=== PATIENT | female | born 1990 | race Two or more races ===

== ENCOUNTER 2018-01-04 14:57 | Outpatient (CLI) | payer BC ==
[~2018-01-04 14:57] MED LIST: FERRIC CARBOXYMALTOSE 750 MG in NORMAL SALINE 250 ML IV PRN; NORMAL SALINE 250 ML IV PRN
[2018-01-04 15:44] VITALS: BP 116/70
== END 2018-01-04 16:04 | disposition home or self-care (01) ==
LOC: II 14:57 → 5TH 15:28 → II 16:04
PROVIDERS: ATTEND Internal Medicine Hematology & Oncology
PROC: 3E033GC Introduction of Other Therapeutic Substance into Peripheral Vein, Percutaneous Approach (ICD-10-PCS; principal; 2018-01-04)
DX: D50.9 Iron deficiency anemia, unspecified (principal); K90.9 Intestinal malabsorption, unspecified
CPT/HCPCS: 96367; J7050; J1439; 96374

== ENCOUNTER 2018-01-11 14:55 | Outpatient (CLI) | payer BC ==
[2018-01-11 15:25] VITALS: BP 111/63
== END 2018-01-11 16:04 | disposition home or self-care (01) ==
LOC: II 14:55 → 5TH 15:14 → II 16:04
PROVIDERS: ATTEND Internal Medicine Hematology & Oncology
PROC: 3E033GC Introduction of Other Therapeutic Substance into Peripheral Vein, Percutaneous Approach (ICD-10-PCS; principal; 2018-01-11)
DX: D50.9 Iron deficiency anemia, unspecified (principal); K90.9 Intestinal malabsorption, unspecified
CPT/HCPCS: 96374; J7050; J1439; 96367

== ENCOUNTER 2018-03-17 15:45 | Outpatient (CLI) | payer BC ==
[2018-03-17 16:18] LABS: APPEARANCE,URINE SLIGHTLY-CLOUDY; BILIRUBIN,URINE NEGATIVE (NEGATIVE); COLOR,URINE STRAW; GLUCOSE, URINE NEGATIVE (NEGATIVE); KETONES,URINE NEGATIVE (NEGATIVE); LEUKOCYTE ESTERASE,URINE NEGATIVE (NEGATIVE); NITRITE,URINE NEGATIVE (NEGATIVE); PROTEIN,URINE NEGATIVE (NEGATIVE); URINE SPECIFIC GRAVITY 1.005; UROBILINOGEN,URINE NEGATIVE mg/dL (<2.0)
[2018-03-17 16:33] LABS: URINE AMPHETAMINES SCREEN NEGATIVE; URINE BARBITURATES SCREEN NEGATIVE; URINE BENZODIAZEPINES SCREEN NEGATIVE; URINE COCAINE SCREEN NEGATIVE; URINE MARIJUANA (THC) SCREEN NEGATIVE; URINE METHADONE SCREEN NEGATIVE; URINE PHENCYCLIDINE SCREEN NEGATIVE
== END 2018-03-17 17:42 | disposition home or self-care (01) ==
LOC: LC 15:45
PROVIDERS: ATTEND Student in an Organized Health Care Education/Training Program
PROC: 4A1HXCZ Monitoring of Products of Conception, Cardiac Rate, External Approach (ICD-10-PCS; principal; 2018-03-17)
DX: O47.1 False labor at or after 37 completed weeks of gestation (principal); Z3A.40 40 weeks gestation of pregnancy
CPT/HCPCS: 59025; 80307; 81005; 82962

== ENCOUNTER 2018-03-20 06:48 | Outpatient (CLI) | payer BC ==
--- NOTE | 2018-03-20 06:53 | Non Stress Test Report ---
I WAS NOT CONSULTED ON THIS PATIENT. DR WASSERMAN WAS NOTIFIED OF THIS PATIENT ====== Non Stress Test Datetime Report Generated by CPN: 03/20/2018 06:53 DEMOGRAPHIC EGA NST: 40.1 INDICATION Indication for Study: Diabetes Mellitus; Other Indication for Study (NST) Other: LABOR CHECK MONITORING Monitor Explained: Monitor Explained; Test Explained; Patient Verbalized Understanding Time on Monitor: 03/17/2018 16:06 Time off Monitor: 03/17/2018 17:26 NST Duration: 80 NST INTERVENTIONS NST Interventions: PO Hydration; Reposition Patient Physician Notified NST: DRAleyda ALYSE BABY A: [id number] BABY A Movement : Present Contraction Frequency : IRREG FHR Baseline : 140 Accelerations : 15X15 Decelerations : None Variability : Moderate 6-25bpm NST Review: Meets Criteria for Reactive NST NST Review and Verified By : EMERSON MCCORMICK Results: Reactive NST REPORT Report Trigger: Send Report MTDD
[2018-03-20 07:45] LABS: APPEARANCE,URINE SLIGHTLY-CLOUDY; BILIRUBIN,URINE NEGATIVE (NEGATIVE); COLOR,URINE STRAW; GLUCOSE, URINE NEGATIVE (NEGATIVE); KETONES,URINE NEGATIVE (NEGATIVE); LEUKOCYTE ESTERASE,URINE NEGATIVE (NEGATIVE); NITRITE,URINE NEGATIVE (NEGATIVE); PROTEIN,URINE NEGATIVE (NEGATIVE); URINE SPECIFIC GRAVITY 1.009; UROBILINOGEN,URINE NEGATIVE mg/dL (<2.0)
[2018-03-20 08:11] LABS: URINE AMPHETAMINES SCREEN NEGATIVE; URINE BARBITURATES SCREEN NEGATIVE; URINE BENZODIAZEPINES SCREEN NEGATIVE; URINE COCAINE SCREEN NEGATIVE; URINE MARIJUANA (THC) SCREEN NEGATIVE; URINE METHADONE SCREEN NEGATIVE; URINE PHENCYCLIDINE SCREEN NEGATIVE
[2018-03-20] MEDS ORDERED: PROMETHAZINE HCL INJ 25 MG/1 ML VIAL IM ONE (09:28)
[2018-03-20] MEDS ORDERED: MORPHINE SULFATE 10 MG/ML INJ IM ONE (09:28)
[2018-03-20] MEDS ORDERED: MORPHINE SULFATE 10 MG/ML INJ ONE (09:34)
[2018-03-20] MEDS ORDERED: PROMETHAZINE HCL INJ 25 MG/1 ML VIAL ONE (09:34)
--- NOTE | 2018-03-20 10:23 | Non Stress Test Report ---
I WAS NOT CONSULTED ON THIS PATIENT. DR CHILDRESS WAS NOTIFIED OF THIS PATIENT======= Non Stress Test Datetime Report Generated by CPN: 03/20/2018 10:23 DEMOGRAPHIC EGA NST: 40.4 INDICATION Indication for Study: Other Indication for Study (NST) Other: lc MONITORING Monitor Explained: Monitor Explained; Test Explained; Patient Verbalized Understanding Time on Monitor: 03/20/2018 08:50 Time off Monitor: 03/20/2018 09:13 NST Duration: 23 NST INTERVENTIONS NST Interventions: PO Hydration; Reposition Patient Physician Notified NST: Dr Childress BABY A Movement : Present Contraction Frequency : irreg FHR Baseline : 125 Accelerations : 15X15 Decelerations : None Variability : Moderate 6-25bpm NST Review: Meets Criteria for Reactive NST NST Review and Verified By : Juan Jose RN NST Results: Reactive NST REPORT Report Trigger: Send Report MTDD
== END 2018-03-20 09:50 | disposition home or self-care (01) ==
LOC: LC 06:48
PROVIDERS: ATTEND Obstetrics & Gynecology
PROC: 4A1HXCZ Monitoring of Products of Conception, Cardiac Rate, External Approach (ICD-10-PCS; principal; 2018-03-20)
DX: O24.419 Gestational diabetes mellitus in pregnancy, unspecified control (principal); Z3A.40 40 weeks gestation of pregnancy
CPT/HCPCS: 59025; 82962; 81005; 80307; J2270; J2550

== ENCOUNTER 2018-03-21 03:05 | Inpatient (IN) | payer BC ==
[2018-03-21 04:22] LABS: APPEARANCE,URINE TURBID; BILIRUBIN,URINE NEGATIVE (NEGATIVE); COLOR,URINE YELLOW; GLUCOSE, URINE NEGATIVE (NEGATIVE); KETONES,URINE NEGATIVE (NEGATIVE); LEUKOCYTE ESTERASE,URINE MODERATE (NEGATIVE); NITRITE,URINE NEGATIVE (NEGATIVE); PROTEIN,URINE 30 mg/dL (NEGATIVE); URINE SPECIFIC GRAVITY 1.012; UROBILINOGEN,URINE NEGATIVE mg/dL (<2.0)
[2018-03-21 04:37] LABS: URINE AMPHETAMINES SCREEN NEGATIVE; URINE BARBITURATES SCREEN NEGATIVE; URINE BENZODIAZEPINES SCREEN NEGATIVE; URINE COCAINE SCREEN NEGATIVE; URINE MARIJUANA (THC) SCREEN NEGATIVE; URINE METHADONE SCREEN NEGATIVE; URINE PHENCYCLIDINE SCREEN NEGATIVE
[2018-03-21] MEDS ORDERED: RINGERS SOLUTION,LACTATED 1,000 ML IV PRN (06:25)
[2018-03-21 07:17] LABS: HEMATOCRIT 43.8 % (36.0-47.0); HEMOGLOBIN 15.2 g/dL (12.0-15.5); MEAN CORPUSCULAR HEMOGLOBIN 29.1 pg (27.0-33.4); MEAN CORPUSCULAR HGB CONC 34.6 g/dL (32.0-36.0); MEAN CORPUSCULAR VOLUME 84 fl (80-97); PLATELET COUNT 242 10^3/uL (150-450); RED CELL DISTRIBUTION WIDTH 18.3 % (11.5-14.0); WHITE BLOOD COUNT 8.3 10^3/uL (4.0-10.5)
[2018-03-21 07:42] LABS: ABSOLUTE LYMPHOCYTES# (MANUAL) 1.8 10^3/uL (0.5-4.7); ABSOLUTE MONOCYTES # (MANUAL) 0.3 10^3/uL (0.1-1.4); ABSOLUTE NEUTROPHILS# (MANUAL) 6.1 10^3/uL (1.7-8.2); ANISOCYTOSIS 2+; BAND NEUTROPHILS % (MANUAL) 3 % (3-5); BASOPHILS % (MANUAL) 1 % (0-2); EOSINOPHILS % (MANUAL) 0 % (0-6); LYMPHOCYTES % (MANUAL) 21 % (13-45); MONOCYTES % (MANUAL) 4 % (3-13); PLATELET CLUMPS PRESENT; POLYCHROMASIA SLIGHT; SEGMENTED NEUTROPHILS % (MAN) 70 % (42-78); TOTAL CELLS COUNTED 100; TOXIC GRANULATION 2+; TOXIC VACUOLATION PRESENT
[2018-03-21] MEDS ORDERED: LIDOCAINE 1% INJ-PF (10 MG/ML) 30 ML SDV ONE (07:57)
[2018-03-21] MEDS ORDERED: OXYTOCIN/NORMAL SALINE 20 UNIT/1,000 ML RTUINJ ONE (07:57)
[2018-03-21] MEDS ORDERED: MISOPROSTOL 0.2 MG TABLET ONE ×2 (07:57→15:02)
[2018-03-21] MEDS ORDERED: MAGNESIUM HYDROXIDE SUSP 30 ML UDCUP PO PRN (09:25)
[2018-03-21] MEDS ORDERED: PROMETHAZINE HCL 25 MG SUPP.RECT PR PRN (09:25)
[2018-03-21] MEDS ORDERED: DIBUCAINE 1% OINTMENT 28 GM TP PRN (09:25)
[2018-03-21] MEDS ORDERED: ZOLPIDEM TARTRATE 5 MG TABLET PO PRN (09:25)
[2018-03-21] MEDS ORDERED: PROMETHAZINE HCL 25 MG TABLET PO PRN (09:25)
[2018-03-21] MEDS ORDERED: MEASLES,MUMPS&RUBELLA VACC/PF 0.5 ML VIAL SUBCUT PRN ×2 (09:25→14:00)
[2018-03-21] MEDS ORDERED: OXYTOCIN/NORMAL SALINE 20 UNIT/1,000 ML RTUINJ IV PRN (09:25)
[2018-03-21] MEDS ORDERED: DIPHENHYDRAMINE HCL 25 MG CAPSULE PO PRN (09:25)
[2018-03-21] MEDS ORDERED: BENZOCAINE/MENTHOL AEROSOL SPRAY 56 ML TOP PRN (09:25)
[2018-03-21] MEDS ORDERED: NA PHOS,M-B/NA PHOS,DI-BA (ADULT) 133 ML ENEMA PR PRN (09:25)
[2018-03-21] MEDS ORDERED: PSEUDOEPHEDRINE HCL 30 MG TABLET PO PRN (09:25)
[2018-03-21] MEDS ORDERED: DIPH/PERTUSS(ACELL)/TETANUS VAC/PF 0.5 ML SYR (>=10YO) IM PRN ×2 (09:25→14:00)
[2018-03-21] MEDS ORDERED: ACETAMINOPHEN WITH CODEINE #3 TABLET PO PRN ×2 (09:25)
[2018-03-21] MEDS ORDERED: ACETAMINOPHEN 650 MG SUPP.RECT PR PRN (09:25)
[2018-03-21] MEDS ORDERED: PROMETHAZINE HCL INJ 25 MG/1 ML VIAL IV PRN ×2 (09:25→14:00)
[2018-03-21] MEDS ORDERED: GLYCERIN/WITCH HAZEL LEAF 1 EACH MED..PAD TP PRN (09:25)
[2018-03-21] MEDS ORDERED: IBUPROFEN 800 MG TABLET ONE (09:45)
[2018-03-21] MEDS: PRENATAL VITAMIN W DHA CAPSULE PO SCH (11:16)
[2018-03-21] MEDS: SENNOSIDES/DOCUSATE 8.6-50 MG 1 EACH TABLET PO SCH (11:16)
[2018-03-21] MEDS: FAMOTIDINE 20 MG TABLET PO SCH ×2 (11:17→21:45)
[2018-03-21] MEDS: DOCUSATE SODIUM 100 MG CAPSULE PO SCH ×2 (11:17→18:15)
[2018-03-21] MEDS: FERROUS SULFATE 325 MG TABLET PO SCH ×2 (11:20→18:15)
[2018-03-21] MEDS: IBUPROFEN 800 MG TABLET PO SCH ×2 (13:48→21:46)
[2018-03-21] MEDS ORDERED: IBUPROFEN 800 MG TABLET PO SCH (14:00)
--- NOTE | 2018-03-21 14:26 | PDOC PROGRESS REPORT ---
Subjective-OB Progress Note for:: 03/21/18 Subjective: denies pain. CNM called by RN for several large clots Physical Exam (OB) Vital Signs: Temp Pulse Resp BP Pulse Ox 98.4 F 81 16 105/64 100 03/21/18 10:59 03/21/18 10:59 03/21/18 10:59 03/21/18 10:59 03/21/18 10:59 Intake & Output 03/20/18 03/21/18 03/22/18 06:59 06:59 06:59 Weight 66 kg - Lochia Lochia Amount: Moderate 25-50 ml - CNM removed scant clots from lower uterine segment - Abdomen Description: Soft Fundal Description: Firm Fundal Height: u/u - u/2 - Genitourinary Female External exam: Normal Speculum exam: Cervix open - other clots felt, unable to reach to remove, cytotec 1000mg MD placed Objective-Diagnostic Laboratory: 03/21/18 06:41 03/21/18 03/21/18 03/21/18 03:20 06:41 06:41 WBC 8.3 RBC 5.20 Hgb 15.2 Hct 43.8 MCV 84 MCH 29.1 MCHC 34.6 RDW 18.3 H Plt Count 242 Seg Neutrophils % Not Reportable Lymphocytes % Not Reportable Monocytes % Not Reportable Eosinophils % Not Reportable Basophils % Not Reportable Absolute Neutrophils Not Reportable Absolute Lymphocytes Not Reportable Absolute Monocytes Not Reportable Absolute Eosinophils Not Reportable Absolute Basophils Not Reportable Urine Color YELLOW Urine Appearance TURBID Urine pH 6.0 Ur Specific [place] 1.012 Urine Protein 30 H Urine Glucose (UA) NEGATIVE Urine Ketones NEGATIVE Urine Blood LARGE H Urine Nitrite NEGATIVE Ur Leukocyte Esterase MODERATE H Blood Type O POSITIVE Antibody Screen NEGATIVE Assessment and Plan(PN) - Assessment and Plan (1) Vaginal delivery following previous section, delivered Is this a current diagnosis for this admission?: Yes - Time Spent with Patient Time with patient: Less than 15 minutes - Disposition Anticipated Discharge: Home Within: within 48 hours
[2018-03-21] MEDS ORDERED: MISOPROSTOL 0.2 MG TABLET PR ONE (14:27)
--- NOTE | 2018-03-21 15:00 | Admission Physical ---
Datetime Report Generated by CPN: 03/21/2018 15:00 CURRENT ADMISSION Chief Complaint: Uterine Contractions Indication for Induction: Not Applicable Admit Impression : Term, Intrauterine ; Active Labor Admit Plan: Admit to Unit ALLERGIES Medication Allergies: No Medication Allergies: No Known Allergies (03/21/2018) Latex: No Latex Allergies Food Allergies: NONE Environmental Allergies: NONE OBSTETRICAL HISTORY EDC: 03/16/2018 00:00 : 7 Para: 3 Term: 3 : 0 Ectopic: 0 Livin Cesareans: 1 VBACs: 0 Multiple Births: 0 Gestational Diabetes: Yes Rh Sensitization: No Incompetent Cervix: No SHIELA: No Infertility: No ART Treatment: No Uterine Anomaly: No IUGR: No Hx Previous C/S: Yes Macrosomia: No Hx Loss/Stillborn: No PIH: No Hx : No Placenta Previa/Abruption: No Depression/PP Depression: No PTL/PROM: No Post Hemorrhage: No Current Procedures: Ultrasound Obstetrical History Comments: G1: G2: G3: G4: 12/2010; ; 6 lbs G5:03/2013; ; 6 pounds 6 oz G6:12/2014; c/s @ 37 weeks for breech presentation 6 pounds, 9 oz G7: current (uncontrolled GDM, desires TOLAC) SEE RECORDS Alcohol: No Marijuana : No Cocaine: No Other Illicit Drugs: No Cigarettes: Never Smoker. [id number] MEDICAL HISTORY Diabetes: Yes Diabetes Type: Gestational Diabetes Blood Transfusion: No Pulmonary Disease (Asthma, TB): No Breast Disease: No Hypertension: No Rpg Developer Surgery: No Heart Disease: No Hosp/Surgery: Yes Autoimmune Disorder: No Anesthetic Complications: No Kidney Disease: No Abnormal Pap Smear: No Neuro/Epilepsy: No Psychiatric Disorders: No Hepatitis/Liver Disease: No Significant Family History: No Varicosities/Phlebitis: No Trauma/Violence : No Thyroid Dysfunction: No Medical History Comments: hospitalized for of 3 children INFECTIOUS HISTORY Chlamydia: Yes Infectious History Comments: + chlamydia this (ELIEL 12/2017) PHYSICAL EXAM General: Normal HEENT: Normal Neurologic: Normal Thyroid: Deferred Heart: Normal Lungs: Normal Breast: Deferred Back: Normal Abdomen: Normal Genitourinary Exam: Normal Extremities: Normal DTRs: Deferred Pelvic Type: Adequate Physical Exam Comments: pelvis proven Vital Signs: Reviewed; Within Normal Limits VAGINAL EXAM Dilatation: AL Effacement: C Station: 1 Contraction Comments: q2 mins MEMBRANES Membranes: Ruptured Amniotic Fluid Color: Clear FETUS A EGA: 40.5 Monitoring: External US FHR- Baseline: 135 Variability: Moderate 6-25bpm Accelerations: 15X15 Decelerations: Early Estimated Weight (gm): 3200 Presentation: Oblique Admit Comment: admitted last night in labor. hx c/s 2015, anemia, +chlamydia during with neg ELIEL. seeing Dr Chapman during for anemia. PLANS FOR LABOR AND DELIVERY Labor and Delivery: None Pain Management: Natural Feeding Preference: Both Benefit of Breast Feed Discussed: Yes Circumcision: N/A INFORMED CONSENT Assignment: Matilde Jain MD Signature: with User ID: [email or web address] : with User ID: [email or web address]
[2018-03-22] MEDS: IBUPROFEN 800 MG TABLET PO SCH ×3 (06:07→21:49)
[2018-03-22 08:24] LABS: MEAN CORPUSCULAR HGB CONC 34.2 g/dL (32.0-36.0); MEAN CORPUSCULAR VOLUME 85 fl (80-97); PLATELET COUNT 230 10^3/uL (150-450); RED CELL DISTRIBUTION WIDTH 18.6 % (11.5-14.0); WHITE BLOOD COUNT 8.2 10^3/uL (4.0-10.5)
[2018-03-22 08:32] LABS: HEMOGLOBIN 11.6 g/dL (12.0-15.5)
[2018-03-22] MEDS: FAMOTIDINE 20 MG TABLET PO SCH ×2 (10:18→21:49)
[2018-03-22] MEDS: PRENATAL VITAMIN W DHA CAPSULE PO SCH (10:18)
[2018-03-22] MEDS: FERROUS SULFATE 325 MG TABLET PO SCH ×2 (10:19→17:30)
[2018-03-22] MEDS: SENNOSIDES/DOCUSATE 8.6-50 MG 1 EACH TABLET PO SCH (10:19)
[2018-03-22] MEDS: DOCUSATE SODIUM 100 MG CAPSULE PO SCH ×2 (10:19→17:30)
--- NOTE | 2018-03-22 10:49 | PDOC PROGRESS REPORT ---
Subjective-OB Progress Note for:: 03/22/18 Subjective: PP Day #1, doing well today, no complaints, . Physical Exam (OB) Vital Signs: Temp Pulse Resp BP Pulse Ox 97.5 F 86 15 118/78 99 03/22/18 07:47 03/22/18 07:47 03/22/18 07:47 03/22/18 07:47 03/22/18 07:47 Intake & Output 03/21/18 03/22/18 03/23/18 06:59 06:59 06:59 Intake Total 220 Balance 220 Weight 66 kg - General General Appearance: Appears well, Alert In distress: None - PIH/Pre-Eclampsia Clonus: Negative Headache: Absent Epigastric Pain: No Visual Changes: No - Lochia Lochia Amount: Small 10-25 ml Lochia Color: Rubra/Red - Abdomen Description: Tender, Soft, Round Hernia Present: No Fundal Description: Firm, Midline Fundal Height: u/u - u/2 > 4/u*- Describe: cytotec given by Rhiannon MONTES Fundus message bleeding stop - Respiratory Respiratory Status: No respiratory distress - Genitourinary Genitourinary Note: voiding - Extremities Upper extremity: Normal inspection Lower extremities: Normal inspection - Neurological Cognition: Normal Orientation: AAOx4 - Psychological Associated symptoms: Normal affect, Normal mood - Skin Skin Temperature: Warm Skin Moisture: Dry Objective-Diagnostic Laboratory: 03/22/18 07:59 03/22/18 07:59 WBC 8.2 RBC 4.00 Hgb 11.6 L D Hct 34.0 L MCV 85 MCH 29.0 MCHC 34.2 RDW 18.6 H Plt Count 230 Assessment and Plan(PN) - Assessment and Plan (1) Normal course Is this a current diagnosis for this admission?: Yes (2) Vaginal delivery following previous section, delivered Is this a current diagnosis for this admission?: Yes - Time Spent with Patient Time with patient: Less than 15 minutes Medications reviewed and adjusted accordingly: Yes - Disposition Anticipated Discharge: Home Within: within 24 hours Disposition: stable
[2018-03-23] MEDS: IBUPROFEN 800 MG TABLET PO SCH ×2 (05:51→13:25)
[2018-03-23] MEDS: PRENATAL VITAMIN W DHA CAPSULE PO SCH (10:22)
[2018-03-23] MEDS: FAMOTIDINE 20 MG TABLET PO SCH (10:23)
[2018-03-23] MEDS: SENNOSIDES/DOCUSATE 8.6-50 MG 1 EACH TABLET PO SCH (10:24)
[2018-03-23] MEDS: FERROUS SULFATE 325 MG TABLET PO SCH (10:24)
[2018-03-23] MEDS: DOCUSATE SODIUM 100 MG CAPSULE PO SCH (10:24)
[2018-03-23 15:13] VITALS: BP 121/66
--- NOTE | 2018-03-29 08:10 | Delivery Summary ---
Del Sum A-C Datetime Report Generated by CPN: 03/29/2018 08:10 DELIVERY PERSONNEL DELIVERY PERSONNEL: [id number] Delivery Doctor:: Rhiannon Ellison CNM Labor and Delivery Nurse:: De Luna RNpersonal companion Nurse:: Cate Thomas RN Senior Net Web Developer/SUPERVISOR WINTER: Debra Euceda, SUPERVISOR WINTER II Senior Net Web Developer/SUPERVISOR WINTER: Debra Euceda, SUPERVISOR WINTER II Senior Net Web Developer/SUPERVISOR WINTER: Jaycee Bell, NUCLEAR INSTRUCTOR Senior Net Web Developer/SUPERVISOR WINTER: Jaycee Bell, NUCLEAR INSTRUCTOR MATERNAL INFORMATION Delivery Anesthesia: None Medications After Delivery: Pitocin Drip 20 Units/1000ml NSS Maternal Complications: None Provider Comments: PRISCILLA VIABLE FEMALE . LOOSE NUCHAL CORD REDUCED AFTER DELIVERY OF HEAD. SPONTANEOUS INTACT PLACENTA WITH 3VC. SECOND DEGREE PERINEAL LACERATION REPAIRED UNDER LOCAL ANESTHESIA. MOTHER AND INFANT STABLE IN L_D #5 LABOR SUMMARY EDC: 03/16/2018 00:00 No. Babies in Womb: 1 Attempted: Yes Labor Anesthesia: None LABOR INFORMATION Reason for Induction: Not Applicable Onset of Labor: 03/21/2018 07:58 Complete Dilatation: 03/21/2018 08:21 Oxytocin: N/A Group B Beta Strep: POSITIVE Antibiotics # of Doses: 0 Antibiotics Time of Last Dose: n/a Name of Antibiotic Given: n/a Steroids Given: None Reason Steroids Not Administered: Not Applicable Other Reason Not Administered: n/a MEMBRANES Membranes Rupture Method: Spontaneous Rupture of Membranes: 03/21/2018 02:30 Length of Rupture (hr): 6.18 Amniotic Fluid Color: Clear Amniotic Fluid Amount: Scant Amniotic Fluid Odor: Normal STAGES OF LABOR Stage 1 hr: 0 Stage 1 min: 23 Stage 2 hr: 0 Stage 2 min: 20 Stage 3 hr: 0 Stage 3 min: 7 Total Time in Labor hr: 0 Total Time in Labor min: 50 VAGINAL DELIVERY Episiotomy: None Laceration #1: Perineal Laceration Extension #1: Second Degree Laceration Repair: Yes Laceration Repair Note: second degree perineal laceration repaird under local anesthesia Sponge Count Correct: Yes Sharps Count Correct: Yes CSECTION DELIVERY Primary Indication: N/A Secondary Indication: N/A CSection Incidence: N/A Labor: N/A Elective: N/A CSection Incision: N/A BABY A INFORMATION Delivery Date/Time: 03/21/2018 08:41 Method of Delivery: Vaginal Method of Delivery: Vaginal Born in Route : No : Successful Forceps: N/A Vacuum Extraction: N/A Shoulder Dystocia : No PRESENTATION/POSITION BABY A Presentation: Cephalic Cephalic Presentation: Vertex Vertex Position: Left Occipital Anterior Breech Presentation: N/A PLACENTA INFORMATION BABY A Placenta Delivery Time : 03/21/2018 08:48 Placenta Method of Delivery: Spontaneous Placenta Method of Delivery: Spontaneous Placenta Status: Delivered SCORES BABY A Heart Rate 1 min: >100 bpm Resp Effort 1 min: Good Cry Reflex Irritability 1 min: Cough or Sneeze or Pulls Away Muscle Tone 1 min: Active Motion Color 1 min: Blue/Pale Resuscitation Effort 1 min: Tactile Stimulation SCORE 1 MIN: 8 Heart Rate 5 min: >100 bpm Resp Effort 5 min: Good Cry Reflex Irritability 5 min: Cough or Sneeze or Pulls Away Muscle Tone 5 min: Active Motion Color 5 min: Body [place], Extremities Blue Resuscitation Effort 5 min: N/A SCORE 5 MIN: 9 INFANT INFORMATION BABY A Gestational Age at Delivery: 40.5 Gestational Status: Full Term- 39- 40.6 Weeks Outcome : Liveborn Infant Condition : Stable Infant Sex: Female Sex: Female IDENTIFICATION BABY A Infant Verification Date/Time: 03/21/2018 09:13 ID Band Number: [id number] Mother's Name Verified: Yes Infant RN Verifying Infant: De Luna, RN and Cate Thomas, RN WEIGHT/LENGTH BABY A Birthweight (gm): 3400 Infant Weight (lb): 7 Infant Weight (oz): 8 Length (in): 20.00 Length (cm): 50.80 CORD INFORMATION BABY A No. Cord Vessels: 3 Nuchal Cord : Around Neck x1, Loose Cord Blood Taken: Yes-For Eval (Mom's Blood Type - or O+) Suction: None ASSESSMENT BABY A Complications: None Physical Findings at Delivery: Within Normal Limits Infant Respirations: Appears Normal Skin to Skin: Yes Skin to Skin Time (min): 60 Auto Apprentice Mechanic/ALS Called : No Infant Care By: Anup Thomas RN Transferred To: Remains with Mother BABY B INFORMATION : N/A SIGNATURES Assignment: Matilde Jain MD Signature: with User ID: [email or web address] : with User ID: [email or web address] : I was personally available for consultation and serving as supervising physician for the MLP. : I was personally available for consultation and serving as supervising physician for the MLP.
--- NOTE | 2018-04-04 08:44 | PDOC DISCHARGE SUMMARY ---
Final Diagnosis Discharge Date: 03/23/18 - Final Diagnosis (1) Is this a current diagnosis for this admission?: Yes (2) Vaginal delivery following previous section, delivered Is this a current diagnosis for this admission?: Yes (3) Normal course Is this a current diagnosis for this admission?: Yes Discharge Data - Discharge Medication Prescriptions: Ibuprofen [Motrin 800 mg Tablet] 800 mg PO Q8HP PRN #60 tablet PRN Reason: Abdominal Cramping Vit/Dha [ Multi + Dha Capsule] 1 cap PO DAILY #60 capsule Home Medications: Acetaminophen [Tylenol 325 mg Tablet] 2 tab PO Q4 03/17/18 Ibuprofen [Motrin 800 mg Tablet] 800 mg PO Q8HP PRN #60 tablet 03/23/18 Vit/Dha [ Multi + Dha Capsule] 1 cap PO DAILY #60 capsule 03/23 Reason(s) for Admission: Onset of Labor Procedures: NST, Ultrasound Intrapartum Procedure(s): Spontaneous Vaginal Delivery - Complication(s): Laceration-Perineal Laceration-Degree: 2nd - Diagnosis Test Laboratory: Temp Pulse Resp BP Pulse Ox 98.1 F 83 16 121/66 100 03/23/18 08:16 03/23/18 08:16 03/23/18 08:16 03/23/18 08:16 03/23/18 08:16 03/21/18 03/21/18 03/22/18 03:20 06:41 07:59 RBC 5.20 4.00 Hgb 15.2 11.6 L D Hct 43.8 34.0 L Urine Opiates Screen UNCONFIRMED POSITIVE - Discharge information/Instructions Discharge Activity: Activity As Tolerated, Balance Activity w/Rest, No Lifting Over 10 Pounds, Pelvic Rest, No tub bath, Walk Frequently Discharge Diet: As Tolerated, Regular Disposition: HOME, SELF-CARE Follow up with: [facility] in: 4, Weeks
== END 2018-03-23 16:30 | disposition home or self-care (01) | DRG 807 ==
LOC: LC 03:05 → LR 06:19 → 2S 10:47
PROVIDERS: ADMIT Obstetrics & Gynecology Gynecology; ATTEND Obstetrics & Gynecology Gynecology
PROC: 10D07Z6 Extraction of Products of Conception, Vacuum, Via Natural or Artificial Opening (ICD-10-PCS; principal; 2018-03-21)
PROC: 0KQM0ZZ Repair Perineum Muscle, Open Approach (ICD-10-PCS; 2018-03-21)
PROC: 4A1HXCZ Monitoring of Products of Conception, Cardiac Rate, External Approach (ICD-10-PCS; 2018-03-21)
DX: O99.824 Streptococcus B carrier state complicating childbirth (principal); Z37.0 Single live birth; O34.211 Maternal care for low transverse scar from previous cesarean delivery; O24.429 Gestational diabetes mellitus in childbirth, unspecified control; O99.02 Anemia complicating childbirth; D64.9 Anemia, unspecified; O70.1 Second degree perineal laceration during delivery; O69.81X0 Labor and delivery complicated by cord around neck, without compression, not applicable or unspecified; Z3A.40 40 weeks gestation of pregnancy
CPT/HCPCS: 36415; 59025; 80307; 81005; 84112; 85025; 85027; 86592; 86850; 86900; 86901; 90471; G0008; J2590; J3490

== ENCOUNTER → 2018-08-22 | Outpatient (CLI) | payer BC ==
[2018-08-22 12:33] LABS: FREE T4 (FREE THYROXINE) 0.55 ng/dL (0.78-2.19)
[2018-08-22 12:47] LABS: THYROID STIMULATING HORMONE 52.3 uIU/mL (0.47-4.68)
== END ==
LOC: OD 11:29 → MERGE 11:29
PROVIDERS: ATTEND Otolaryngology
DX: E04.1 Nontoxic single thyroid nodule (principal)
CPT/HCPCS: 36415; 84439; 84443

== ENCOUNTER → 2018-08-29 | Outpatient (CLI) | payer BC ==
--- NOTE | 2018-08-29 17:49 | RADIOLOGY REPORT (SQ) ---
EXAM DESCRIPTION: U/S THYROID/SFT TISS HD NECK COMPLETED DATE/TIME: 08/29/2018 5:21 pm REASON FOR STUDY: NONTOXIC SINGLE THYROID NODULE E04.1 NONTOXIC SINGLE THYROID NODULE COMPARISON: None. TECHNIQUE: Dynamic and static arroyo-scale images acquired of the thyroid gland. Selected additional c olor/power Doppler images recorded. All images stored to PACS. LIMITATIONS: None. FINDINGS: RIGHT LOBE: Right lobe thyroid is 6.5 x 2.4 x 1.7 cm in size. There is diffuse heterogene ous echogenicity. A well-circumscribed 2.8 x 1.3 x 1.2 cm solid nodule with increased echogenicity, wider than tall is present with smooth margins. No gross calcifications. This is a TI-RADS 4 lesion , fine-needle aspirate of this nodule is recommended. LEFT LOBE: Left lobe thyroid is 4.6 x 2.5 x 1.6 cm in size. Diffusely heterogeneous echogenicity. N o cystic or solid nodules. No calcifications. ISTHMUS: Diffusely thickened, 5 mm in thickness with heterogeneous echotexture. No cystic or solid masses. OTHER: No other significant finding. IMPRESSION: 2.8 x 1.3 x 1.2 cm solid nodule, fine-needle aspirate of this nodule is recommended. TECHNICAL DOCUMENTATION: JOB ID: [id number] [employer]- All Rights Reserved Reading location - IP/workstation name: [email or web address]
== END ==
LOC: RAD 15:51
PROVIDERS: ATTEND Otolaryngology
DX: E04.1 Nontoxic single thyroid nodule (principal)
CPT/HCPCS: 76536